=== PATIENT | male | born 1980 | race Caucasian/White ===

== ENCOUNTER 2019-09-25 00:23 | Emergency (ER) | payer OTHER, SELFPAY ==
[2019-09-25] VITALS (7 sets, daily range): BP systolic 95–118; BP diastolic 60–72; PULSE 66–79; RESP 13–20; TEMP 36.6; O2SAT 96–99
--- NOTE | 2019-09-25 00:35 | ED.OVERDOSE ---
HPI - Overdose General Chief Complaint: Overdose Stated Complaint: wellbutrin OD History of Present Illness HPI Narrative: BIBEMS form home due to possible wellbutrin overdose. They were called the house by his who was concerned that he may have taken too much wellbutrin and trazadone. She apparently had this concern because he appologized to her before take some medications. She only witnessed him take a normal dose of tradzadone and he apparently made no direct suicidal claims. He denies taking anything but his night time dose of trazadone. He says that he is not suicidal. He does admit to having a few alcoholic beverages. His was called and she was able to locate his wellbutrin and does not appear that any extra had been taken. She does not know if he had another bottle. Related Data Home Medications Medication Instructions Recorded Confirmed Wellbutrin SR 300 DAILY 09/25/19 clonazepam 1 mg PO DAILY 09/25/19 09/25/19 prazosin 9 mg 09/25/19 trazodone 100 mg PO BID 09/25/19 Allergies Allergy/AdvReac Type Severity Reaction Status Date / Time hydrocodone Allergy Rash Verified 09/25/19 00:38 Review of Systems Review of Systems: All systems reviewed & are unremarkable except as noted in HPI and below Constitutional: Constitutional: Denies fever(s) Cardiovascular: Cardiovascular: Denies chest pain Respiratory: Respiratory: Denies dyspnea Gastrointestinal: Gastrointestinal: Denies nausea and Denies vomiting Neurologic: Denies dizziness and Denies weakness Psychiatric: Psychiatric: Denies homicidal ideation and Denies suicidal ideation Exam Const: General: healthy appearing, no acute distress and alert Orientation/consciousness: patient oriented x3 Other: Drowsy HENMT: Head: normal to inspection Neck: Neck: normal visual inspection and no lymphadenopathy Chest: Chest palpation & inspection: no tenderness Resp: Effort & Inspection: normal respiratory effort Auscultation: clear to auscultation bilaterally, no rales, no rhonchi and no wheezes Cardio: Jugular venous distension: no JVD Rate: regular rate Rhythm: regular rhythm Heart sounds: no murmurs GI: Inspection: non-distended GI Palp: Yes Soft to palpation and No Tenderness to palpation present (GI) Skin: General skin exam: normal color Neuro: General: patient oriented x3, moves all extremities and CN's II-XI intact bilaterally Cranial nerves: Yes Nystagmus not present Speech: normal speech Extrem: General: no edema Psych: Appearance: well kempt Affect: normal affect Course Vital Signs Vital signs: Vital Signs Temperature 36.6 C 09/25/19 00:23 Pulse Rate 68 09/25/19 00:23 Respiratory Rate 16 09/25/19 00:23 Blood Pressure 118/72 09/25/19 00:23 Pulse Oximetry 98 09/25/19 00:23 Temperature 36.6 C 09/25/19 00:23 Pulse Rate 67 09/25/19 05:14 Respiratory Rate 14 09/25/19 05:14 Blood Pressure 107/67 09/25/19 05:14 Pulse Oximetry 98 09/25/19 05:14 MDM - Overdose MDM Narrative Medical decision making narrative: He was brought in for concern about an intentional overdose. He denies this. Or any suicidal ideations. No one witnessed it. He never told any one of his intent to do this. There is no missing medication that I am aware of. I cannot be absolutely sure that he did not take excess medications, but at this point I simply do not feel that I have enough evidence of this to hold him against his will a this time. Differential Diagnosis Differential diagnosis: Likely suicide attempt by multiple drug overdose and other (alcohol intoxication ) Medical Records Attestation: I reviewed the patient's medical records. Lab Data Attestation: I reviewed the patient's lab results. Result diagrams: 09/25/19 00:56 09/25/19 00:56 Labs: Lab Results 09/25/19 09/25/19 09/25/19 Range/Units 00:55 00:56 00:56 WBC 4.7 (4.5-10.0) K/mm3 RBC 4.16 L (4.6-6.20) M/mm3 Hgb
--- NOTE | 2019-09-25 00:53 | ECG_ITS ---
Measurements Intervals [place] Rate: 64 P: 68 [place]: 139 QRS: 74 QRSD: 90 T: 60 QT: 478 QTc: 494 Interpretive Statements SINUS RHYTHM PROLONGED QT INTERVAL ABNORMAL ECG Electronically Signed On 09-25-2019 7:47:09 CDT by Ashkan Sparks D.O.
[2019-09-25 01:03] LABS: Basophils Percent Auto 0.2 % (0.2-1.2); Eosinophils Percent Auto 0.9 % (0-4.4); Hemoglobin 11.9 g/dL (14.0-18.0); Lymphocytes Absolute Auto 1.72 K/mm3 (0.9-3.2); Lymphocytes Percent Auto 36.6 % (18.3-44.2); Mean Corpuscular HGB Conc 32.2 g/dl (32-36); Mean Corpuscular Hemoglobin 28.6 pg (26-34); Mean Corpuscular Volume 88.9 fl (80-100); Mean Platelet Volume 9.5 fl (7.4-10.4); Monocytes Absolute Auto 0.6 K/mm3 (0.1-0.6); Monocytes Percent Auto 11.7 % (2.6-8.5); Neutrophils Absolute Auto 2.4 K/mm3 (1.3-6.7); Neutrophils Percent Auto 50.6 % (45.5-73.1); Platelet Count Result 141 k/mm3 (150-375); Red Blood Count 4.16 M/mm3 (4.6-6.20); Red Cell Distribution Width 11.7 % (11.5-14.5); White Blood Count 4.7 K/mm3 (4.5-10.0)
[2019-09-25 01:16] LABS: Acetaminophen < 10 ug/mL (10-30); Alanine Aminotransferase 15 U/L (4-50); Albumin Level 3.9 g/dL (3.5-5.1); Alkaline Phosphatase 46 U/L (38-126); Aspartate Amino Transferase 19 U/L (17-59); Bilirubin,Total 0.4 mg/dL (0.2-1.3); Blood Urea Nitrogen 12 mg/dL (9-20); Calcium 8.2 mg/dL (8.4-10.2); Carbon Dioxide 25 mmol/L (22-30); Chloride 105 mmol/L (98-107); Estimated CRCL calculation 67 ml/min; Estimated Glomerular Filt Rate > 60; Ethanol 63 mg/dL (<10); Glucose 76 mg/dL (75-110); Potassium 3.1 mmol/L (3.4-5.0); Salicylate < 1.0 mg/dL (2-20); Sodium 137 mmol/L (137-145)
[2019-09-25 01:23] LABS: Add Urine Microscopic? NO; Appearance Urine Clear (Clear); Bilirubin Urine Negative (Negative); Blood Urine Negative (Negative); Color Urine Colorless (Yellow); Glucose Urine UA Negative (Negative); Ketones Urine Negative (Negative); Leukocyte Esterase Ur Negative LEU/UL (Negative); Nitrate Urine Negative (Negative); Protein Urine Negative (Negative); Urobilinogen Urine Negative mg/dL (<2.0)
--- NOTE | 2019-09-25 01:25 | PC.NURSE ---
Per Mirta from poison control, the peak of Wellbutrin is 12-16 hours and the half life is 19-25 hours. Mirta stated to watch for seizures and tremors, and if patient begins to have seizure like activity administer benzodiazepines for the seizures. Mirta reports to get a baseline EKG and watch for QT prolongation and to repeat EKG in 2-3 hours. If patient's heart rate also begins to drop a repeat EKG would be needed. She also stated to monitor patient's potassium and magnesium due to risk for Torsades with the QT prolongation. Mirta also stated patient's may tolerate up to 2000mg.
--- NOTE | 2019-09-25 01:26 | PC.NURSE ---
Per Mirta from poison control, a patient can tolerate up to 2000mg of Wellbutrin.
[2019-09-25 01:30] LABS: Amphetamine Screen Urine Negative (Negative); Barbiturate Screen Urine Negative (Negative); Benzodiazepines Screen Urine Negative (Negative); Cannabinoid Screen Urine Negative (Negative); Cocaine Screen Urine Negative (Negative); Methadone Screen Urine Negative (Negative); Opiate Screen Urine Negative (Negative); Phencyclidine Screen Urine Negative (Negative)
--- NOTE | 2019-09-25 01:30 | PC.NURSE ---
WILFREDO Falk notified of poison control's interventions.
[2019-09-25 01:32] LABS: Specific Grav Ur 1.003 (1.001-1.035)
[2019-09-25 01:33] LABS: Magnesium 2.2 mg/dL (1.6-2.3)
--- NOTE | 2019-09-25 02:28 | PC.NURSE ---
Patient gave this RN permission to speak to patient's , Gifty, to determine if patient actually took 2400mg of Wellbutrin. Per Gitfy, the patient's bottle was filled on September 15, 2019 and has 26 pills left in it. The bottle had 30 pills in it when filled. 2400mg is 8 300mg tablets. Gifty then also stated the patient also has 7 pills in his daily pill counter so she is unsure if there is a second bottle. Gifty confirmed she did not see patient take the pills, she stated patient told her he took them and then said, sorry. Patient still denying taking that large of dose, only repeating he took his prescribed dose. WILFREDO Falk notified.
--- NOTE | 2019-09-25 04:17 | PC.NURSE ---
Per EDP Deya, no repeat EKG or blood work needed at this time.
--- NOTE | 2019-09-25 05:01 | PC.NURSE ---
Patient stating to this RN he never told his he took extra medications. Patient just states he said he was sorry.
== END 2019-09-25 06:08 | disposition home or self-care (01) ==
PROVIDERS: Emergency Provider Emergency Medicine; PCP Internal Medicine
DX: Z04.89 Encounter for examination and observation for other specified reasons (principal); R94.31 Abnormal electrocardiogram [ECG] [EKG]
CPT/HCPCS: 36415; 80053; 80307; 81003; 83735; 84443; 85025; 93005; 99283